=== PATIENT | female | born 1960 | race Caucasian/White ===

== ENCOUNTER 2020-09-03 17:25 | Emergency (ER) | payer BC ==
[~2020-09-03] VITALS: Ht 157.5 cm; Wt 54.4 kg
[2020-09-03 17:36] VITALS: BP 132/78
--- NOTE | 2020-09-03 17:36 | NUR ---
60 Y/O F, C/O R HAND PAIN, PT BURNED HAND LAST WEEK, BUT SHE IS UNSURE IF SHE HAD A BUG BITE BECAUSE SHE STARTED GETTING SCABS ON HER HAND AFTER AND PAIN IS NOW RADIATING TO SHOULDER. PT HAS FULL ROM WITH HER R HAND. PMH: NONE MED: NONE ALLERGY: NONE
--- NOTE | 2020-09-03 18:00 | NUR ---
FATMATA POWELL WITH PT IN TRIAGE ROOM.
[2020-09-03] MEDS ORDERED: HYDROcodone/APAP 5/325 MG 1 TAB TAB PO ONE (18:20)
[2020-09-03] MEDS ORDERED: SULF-58 PO (18:23)
[2020-09-03] MEDS ORDERED: BACI1PAC6 TP (18:23)
[2020-09-03] MEDS ORDERED: NAPR-54 PO (18:23)
--- NOTE | 2020-09-03 18:52 | NUR ---
Renzo pepejohnnie in EDM - 09/03/20 at 1854 by [facility] 60 Y/O F, C/O R HAND PAIN, PT BURNED HAND LAST WEEK, BUT SHE IS UNSURE IF SHE HAD A BUG BITE BECAUSE SHE STARTED GETTING SCABS ON HER HAND AFTER AND PAIN IS NOW RADIATING TO SHOULDER. PT HAS FULL ROM WITH HER R HAND. PMH: NONE MED: NONE ALLERGY: NONE
--- NOTE | 2020-09-03 18:53 | NUR ---
Patient discharged with v/s stable. Written and verbal after care instructions given and explained. Patient alert, oriented and verbalized understanding of instructions. Ambulatory with steady gait. All questions addressed prior to discharge. ID band removed. Patient advised to follow up with PMD. Rx of BACITRACIN, NAPROXEN, SULFAMETHOXAZOLE given. Patient educated on indication of medication including possible reaction and side effects. Opportunity to ask questions provided and answered.
--- NOTE | 2020-09-03 18:54 | NUR ---
PT HAD QUESTIONS FOR PA, NOTIFIED ANDRE CHRISTIANSON MD WITH PT.
[2020-09-03 18:55] VITALS: BP 132/78
== END 2020-09-03 18:53 | disposition home or self-care (01) ==
LOC: MED 17:25
DX: T23.251A Burn of second degree of right palm, initial encounter (principal); Z79.899 Other long term (current) drug therapy
CPT/HCPCS: 99283

== ENCOUNTER 2023-12-28 19:47 | Emergency (ER) | payer BC, MEDICAID ==
[~2023-12-28] VITALS: Ht 152.4 cm; Wt 68.0 kg
[~2023-12-28 19:47] MED LIST: BACI-418 TP; NAPR-337 PO; SULF-58 PO
[2023-12-28 19:59] VITALS: BP 159/51; PULSE 78; RESP 18; TEMP 97.5; O2SAT 98
[2023-12-28] MEDS ORDERED: NAPR-337 PO (22:30)
== END 2023-12-28 22:35 | disposition home or self-care (01) ==
LOC: MED 19:47
DX: S93.402A Sprain of unspecified ligament of left ankle, initial encounter (principal); Z79.2 Long term (current) use of antibiotics; Z79.1 Long term (current) use of non-steroidal anti-inflammatories (NSAID); W01.0XXA Fall on same level from slipping, tripping and stumbling without subsequent striking against object, initial encounter; Y93.89 Activity, other specified; Y92.89 Other specified places as the place of occurrence of the external cause; Y99.8 Other external cause status
CPT/HCPCS: 73610; 99283